=== PATIENT | female | born 1990 | race Hispanic/Latino ===

== ENCOUNTER 2023-09-22 18:30 | Emergency (ER) | payer SELFPAY, OTHER | END 2023-09-22 19:21 | disposition home or self-care (01) | LOC: NAV ERS 18:30 | DX: S60.022A Contusion of left index finger without damage to nail, initial encounter (principal); S60.042A Contusion of left ring finger without damage to nail, initial encounter; S60.222A Contusion of left hand, initial encounter; W50.0XXA Accidental hit or strike by another person, initial encounter ==